=== PATIENT | female | born 1965 | race Caucasian/White ===

== ENCOUNTER → 2016-06-22 | Outpatient (CLI) | payer OTHER ==
[~2016-06-22] MED LIST: AMIT1TAB79 PO; APREPITANT 40 MG CAP ONE; CALC1TAB87 PO; CEPH-461 PO; CYCL1TAB29 PO; CYMB60CA PO; DEXAMETHASONE SOD PHOS 4 MG/ML VIAL ONE; FAMOTIDINE 20 MG/2 ML VIAL ONE; GABA300C5 PO; HYDR-3366 PO; LACT10SO PO; MULTTAB67 PO; PRIL20CA9 PO; PROM25TA5 PO
== END ==
LOC: CPRE 12:36
PROVIDERS: ATTEND Neurological Surgery
DX: Z01.818 Encounter for other preprocedural examination (principal); T81.4XXA Infection following a procedure, initial encounter

== ENCOUNTER → 2016-06-24 | Day surgery (SDC) | payer OTHER ==
--- NOTE | 2016-06-23 17:47 | MH ---
cc: THOMPSON RAMÍREZ DR. KHANNA, ROHIT DATE OF ADMISSION 06/24/2016 ADMISSION DIAGNOSIS Lumbar incision drainage. HISTORY OF PRESENT ILLNESS This is a 51-year-old female who underwent an L5/S1 transforaminal interbody fusion with cage and pedicle screw fixation on 04/26/2016. Approximately six days after surgery, she was discharged and was cutting back on her pain medication use and developed worsening back pain and left leg pain with coughing. She was also noted to have some fevers at that time and chills and presented to the emergency room. She was found not to have an elevated white count and was afebrile. She was subsequently discharged and then presented to the emergency room on 05/21/2016 noting some erythema and drainage from the incision, although no fever or chills. She had an MRI scan of the lumbar spine which revealed a fluid collection and interventional radiology was consulted for aspiration of this. The aspiration of the fluid collection did not reveal any bacteria and the patient was discharged home with wound care. She followed up in the office on 06/01/2016 and stated that her incision had been slowly opening up and draining initially a serous type fluid which then turned into a yellow fluid accumulation. We have recommended continued wound care with possible packing. She was seen for her six week follow-up. Postoperatively, on 06/14/2016 she stated that wound care had been giving her an ointment that was working initially but more recently was not. She again noted some yellow serosanguineous drainage, although no fever or chills. She was started on Keflex 750 mg q.6 h for 14 days, although she called our office stating that after a week of antibiotics that she continued to have yellow drainage and the amount of drainage was increasing and not improving and she was therefore recommended to undergo a lumbar incision and drainage to further evaluate any further pockets of fluid in her back. PAST MEDICAL HISTORY 1. Osteoarthritis 2. Migraines 3. Gastroesophageal reflux disease 4. Gastric bypass in 2002 5. Shoulder surgery in 2006 6. Left knee meniscus surgery in 2008. 7. Right wrist surgery distal radius in 2013 8. Two C-sections in 2003 and 2005 9. L5-S1 transforaminal interbody fusion with cage and pedicle screw fixation. MEDICATIONS 1. Gabapentin 300 mg in the morning and afternoon and 600 mg at night. 2. Fluoxetine 60 mg daily. 3. Amitriptyline 10 mg b.i.d. 4. Prilosec 20.6 mg daily. 5. Calcium 600 mg plus vitamin D daily. 6. Multivitamin. ALLERGIES SULFA NONSTEROIDAL ANTIINFLAMMATORY DRUGS FAMILY HISTORY Mother is alive at 75 years old and in good health. Her father is alive at 72 years old and in good health. She has a brother who is alive at 45 years old in good health. SOCIAL HISTORY She is a pre-employment security officer. She is . She has two children. She does not smoke and she does not drink alcohol. REVIEW OF SYSTEMS CONSTITUTIONAL: She denies any fever or chills. EARS, NOSE AND THROAT: No pharyngitis, exudates or bloody drainage from her nose CARDIOVASCULAR: She denies any chest pain or palpitations RESPIRATORY: No cough or shortness of breath GENITOURINARY:: No dysuria or hematuria. MUSCULOSKELETAL: No neck pain. Complains of chronic low back pain INTEGUMENTARY: No rashes or pruritus. She has a wound that is draining in the lumbar spine. NEUROLOGIC: No difficulty with speech. No numbness or tingling of the lower extremities. Gastrointestinal: No abdominal pain. Positive for nausea and vomiting the day before surgery which she relates she thinks it is from the antibiotic which was subsequently stopped. PSYCHIATRIC: Positive for anxiety. No depression symptoms. ENDOCRINE: No polyuria, polydipsia. HEMATOLOGIC: Positive for bruising tendency but no bleeding tendencies. PHYSICAL EXAMINATION HEAD: Normocephalic, atraumatic NECK: Supple. No carotid bruits heard on auscultation. LUNGS: Clear to auscultation bilaterally HEART: Regular rate and rhythm, normal S1, S2. ABDOMEN: Soft, nontender. Positive bowel sounds. She is obese. SKIN: She has a lumbar incision that has an approximately 2 cm opened area with serosanguineous drainage. No loculated fluid collection or pus is noted. MUSCULOSKELETAL: She has 5/5 strength in lower extremities. She ambulates without any assistive device. NEUROLOGIC: She is awake, alert, oriented. Cranial nerves II-XII grossly intact. Her speech is fluent. Comprehension is good. IMPRESSION A 51-year-old female who underwent an L5-S1 transforaminal interbody fusion with cage and pedicle screw fixation on 04/26/2016 who has developed some wound dehiscence and opening of her lumbar incision and has had drainage from this. Despite wound care and antibiotic treatment, the patient states that she is draining yellow fluid from her incision and, therefore, we have recommended incision and drainage to further evaluate and if needed obtain cultures. PLAN We discussed the treatment options with the patient and she is electing to proceed with incision and drainage of her lumbar wound for further evaluation and treatment. We have discussed the procedure as well as the risk, benefit, alternative and recovery time in great detail with the patient. We have discussed the risks involved with surgery which include bleeding and infection and she states that she understands these risks and she wishes to proceed. There is also risk of general anesthesia which she understands. She is requesting that we proceed accordingly and she was therefore scheduled for a lumbar incision and drainage. Venkat Monahan MD Dictated by PATTI Muse/ /4:58 PM /5:18 PM
[~2016-06-24] VITALS: Ht 165.1 cm; Wt 101.6 kg
[~2016-06-24] MED LIST changes: +*morphine SULFATE 8 MG/ML PERIprocedure ONLY ONE; +ACETAMINOPHEN/HYDROcodone 325 MG/10 MG TAB PO PRN; +AMITRIPTYLINE HCL 10 MG TAB PO PRN; -APREPITANT 40 MG CAP ONE; +APREPITANT 40 MG CAP PO ONE; +BUPIVACAINE/EPINEPHRINE 0.5% 50 ML VIAL ONE; +CEPHALEXIN MONOHYDRATE 250 MG CAP PO SCH; +CYCLOBENZAPRINE HCL 10 MG TAB PO PRN; +DEXAMETHASONE SOD PHOS 4 MG/ML VIAL IV ONE; -DEXAMETHASONE SOD PHOS 4 MG/ML VIAL ONE; +DO NOT ADM ANY ANTICOAGULANT DRUGS XX PRN; +DULoxetine HCl DR 60 MG CAP PO SCH; +FAMOTIDINE 20 MG/2 ML VIAL IV ONE; -FAMOTIDINE 20 MG/2 ML VIAL ONE; -GABA300C5 PO; +GELFOAM SIZE 100 ONE; +INSULIN HUMAN REGULAR 1,000 UNITS/10 ML VIAL SQ PRN; -LACT10SO PO; +LACTATED RINGER'S 1000 ML IV SCH; +METOPROLOL TARTRATE 25 MG TAB PO PRN; +MIDAZOLAM HCL 2 MG/2 ML VIAL ONE; +MORPHINE SULFATE 4 MG/ML INJ IV PUSH PRN; +MULTIVITAMIN TAB PO SCH; +ONDANSETRON HCL 4 MG/2 ML VIAL IV PUSH ONE; +ONDANSETRON HCL 4 MG/2 ML VIAL IV PUSH PRN; +PANTOPRAZOLE SOD 20 MG DELAYED RELEASE TAB PO SCH; +PROPOFOL 200 MG/20 ML AMP IV ONE; +SODIUM CHLOR 0.9% 1000 ML INJ 1,000 ML IV SCH; +SODIUM CHLORID 0.9% 500 ML IV SCH; +SUGAMMADEX SODIUM 200 MG/2 ML VIAL IV PUSH ONE; +THROMBIN (TOPICAL) 5,000 UNIT VIAL ONE; +VANCOMYCIN 1,000 MG/NS 250ML (for <70 kg) IV SCH; +VANCOMYCIN HCL 1000 MG VIAL ONE; +fentaNYL CITRATE 250 MCG/5 ML AMP ONE
[2016-06-24 06:53] VITALS: BP 102/72; PULSE 61; RESP 18; TEMP 97.7; O2SAT 100
--- NOTE | 2016-06-24 09:52 | PD.OP ---
Operative Report Date of Surgery: Jun 24, 2016 Preoperative Diagnosis: Lumbar wound dehiscence with seromatous subcutaneous collection Postoperative Diagnosis: Same Procedure: Lumbar wound incision with debridement and drainage of seromatous fluid collection Anesthesia: Gen. endotracheal by Jose Armando Marie Surgeon: Venkat Monahan M.D. Patient Representative(s): Kalie Kirkland Operation and Findings: Following initiation of general endotracheal anesthesia patient had sequential compression devices placed and was in turn on a prone position on Blair frame and the Mike table and all pressure points adequately padded. The lumbar region was then prepped with ChloraPrep and sterilely draped. There was a 1 cm area of wound dehiscence with mild erythema surrounding this which was debrided in the incision site infiltrated with 0.5% Marcaine and epinephrine solution extended superiorly and inferiorly. Subcutaneous seromatous collection was identified which extended down to the fascia but no obvious posterior infection was noted. Cultures were sent. The area irrigated with vancomycin solution. The skin and subcutaneous area debrided with a 15 blade and skin approximated using an 0 Prolene interrupted stitches. A sterile dressing was then applied and she was in turned in supine position and extubated and taken to the recovery room. Estimated blood loss less than 5 cc Venkat Monahan MD Jun 24, 2016 09:52
[2016-06-24 11:16] VITALS: BP 135/84; PULSE 74; RESP 18; TEMP 97; O2SAT 100
== END | disposition home or self-care (01) ==
LOC: HSDC 06:08
PROVIDERS: ATTEND Neurological Surgery
DX: T81.31XA Disruption of external operation (surgical) wound, not elsewhere classified, initial encounter (principal); Z98.1 Arthrodesis status; K21.9 Gastro-esophageal reflux disease without esophagitis; Z98.84 Bariatric surgery status
CPT/HCPCS: 00400; 12020; 87015; 87070; 87102; 87116; 87176; 87205; 87206; J1100; J2250; J2270; J2405; J3010; J3370; J7050; J7120; J8501